=== PATIENT | female | born 1975 | race Caucasian/White ===

== ENCOUNTER 2019-10-15 11:19 | Emergency (ER) | payer OTHER ==
[~2019-10-15] VITALS: Ht 162.6 cm; Wt 68.0 kg
[2019-10-15] MEDS ORDERED: METHOTREXATE 22.5 M1 PO (11:28)
[2019-10-15] MEDS ORDERED: RAYOS5 MG PO (11:28)
[2019-10-15] MEDS ORDERED: FOLIC ACID1 MG PO (11:28)
[2019-10-15 12:05] LABS: ABSOLUTE BASOPHILS 0.1 thou/uL (0.0-0.2); ABSOLUTE EOSINOPHILS 0.1 thou/uL (0.0-0.7); ABSOLUTE LYMPHOCYTES 2.2 thou/uL (0.8-5.3); ABSOLUTE MONOCYTES 0.6 thou/uL (0.0-1.2); ABSOLUTE NEUTROPHILS 7.9 thou/uL (1.6-8.1); EOSINOPHILS 1.1 %; HEMATOCRIT 40.1 % (37.0-47.0); LYMPHOCYTES 20.6 %; MCH 34.2 pg (26.0-34.0); MCHC 34.8 g/dL (28.0-37.0); MCV 98.2 fL (80.0-100.0); MONOCYTES 5.1 %; MPV 7.7 fl. (7.2-11.1); NUCLEATED RBCS 0 /100WBC; PLATELET COUNT* 308 thou/uL (150-400); POLYS 72.2 %; RBC 4.08 mil/uL (4.20-5.00); RDW-CV 13.8 % (10.5-14.5); WBC 10.9 thou/uL (4.0-11.0)
[2019-10-15 12:16] LABS: PROTIME 10.1 Seconds (9.20-11.50)
[2019-10-15 12:18] LABS: CALCIUM 8.4 mg/dL (8.5-10.1); CREATININE 0.5 mg/dL (0.6-1.3); POTASSIUM 3.6 mmol/L (3.5-5.1)
[2019-10-15 12:37] LABS: ALBUMIN 3.4 g/dL (3.4-5.0); TOTAL BILIRUBIN 0.5 mg/dL (<0.1-1.0); TOTAL PROTEIN 6.9 g/dL (6.4-8.2)
[2019-10-15] MEDS ORDERED: PREVACID 24HR15 MG PO (14:50)
[2019-10-15] MEDS ORDERED: CARAFATE 1 GM TA1 GM PO (14:50)
[2019-10-15 15:05] VITALS: BP 144/83
--- NOTE | 2019-10-17 13:56 | EKG ---
[place] [address] ELECTROCARDIOGRAM REPORT Name: UCHE KAMARA Room: [facility]#: [id number] Admission: 10/15/19 Attend Phys: Discharge: 10/15/19 Date of : 75 Date of Service: 10/15/19 1127 Report #: [id number] THIS REPORT FOR: cc: Angelica Amor Shehryar A. 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
== END 2019-10-15 15:05 | disposition home or self-care (01) ==
LOC: M.ERS 11:19
PROVIDERS: Personal Emergency Response Attendant
DX: R07.89 Other chest pain (principal); I10 Essential (primary) hypertension; Z90.710 Acquired absence of both cervix and uterus; Z88.2 Allergy status to sulfonamides

== ENCOUNTER 2020-12-01 10:49 | Emergency (ER) | payer OTHER ==
[~2020-12-01] VITALS: Ht 162.6 cm; Wt 65.8 kg
[~2020-12-01 10:49] MED LIST: CARAFATE 1 GM TA1 GM PO; FOLIC ACID1 MG PO; METHOTREXATE 22.5 M1 PO; PREVACID 24HR15 MG PO; RAYOS5 MG PO
[2020-12-01 11:00] LABS: URINE BILIRUBIN NEGATIVE (Negative); URINE BLOOD NEGATIVE (Negative); URINE CLARITY CLEAR; URINE COLOR YELLOW; URINE GLUCOSE-RANDOM NEGATIVE (Negative); URINE KETONES NEGATIVE (Negative); URINE LEUKOCYTES-REFLEX TRACE (Negative); URINE NITRITE-REFLEX NEGATIVE (Negative); URINE PROTEIN NEGATIVE (Negative); URINE SPECIFIC GRAVITY 1.025 (1.005-1.030); URINE UROBILINOGEN 0.2 E.U./dl (0.2-1.0)
[2020-12-01] MEDS ORDERED: ORENCIA125 MG/1 M SUBQ (11:00)
[2020-12-01 11:11] LABS: SQUAMOUS >10 Many /LPF (0-3); URINE RBC None Seen /HPF (0-2); URINE WBC-REFLEX 0-5 Rare /HPF (0-5)
[2020-12-01 11:12] LABS: BACTERIA-REFLEX None Seen /HPF (None Seen); CASTS None Seen /LPF (None Seen); CRYSTALS None Seen /LPF (None Seen); MUCUS None Seen strn/LPF (None Seen)
[2020-12-01 11:15] LABS: ABSOLUTE BASOPHILS 0.1 thou/uL (0.0-0.2); ABSOLUTE EOSINOPHILS 0.4 thou/uL (0.0-0.7); ABSOLUTE LYMPHOCYTES 2.7 thou/uL (0.8-5.3); ABSOLUTE MONOCYTES 0.6 thou/uL (0.0-1.2); ABSOLUTE NEUTROPHILS 7.2 thou/uL (1.6-8.1); BASOPHILS 0.9 %; EOSINOPHILS 3.7 %; HEMATOCRIT 45.9 % (37.0-47.0); HEMOGLOBIN 15.8 gm/dL (12.0-15.0); LYMPHOCYTES 24.4 %; MCH 32.7 pg (26.0-34.0); MCHC 34.4 g/dL (28.0-37.0); MONOCYTES 5.3 %; NUCLEATED RBCS 0 /100WBC; PLATELET COUNT* 355 thou/uL (150-400); POLYS 65.7 %; RBC 4.83 mil/uL (4.20-5.00); RDW-CV 12.8 % (10.5-14.5); WBC 10.9 thou/uL (4.0-11.0)
[2020-12-01 11:19] LABS: CALCIUM 8.8 mg/dL (8.5-10.1); CREATININE 0.6 mg/dL (0.6-1.3); POTASSIUM 3.9 mmol/L (3.5-5.1)
[2020-12-01 11:23] LABS: ALBUMIN 3.6 g/dL (3.4-5.0); TOTAL BILIRUBIN 0.4 mg/dL (<0.1-1.0); TOTAL PROTEIN 8.1 g/dL (6.4-8.2)
[2020-12-01] MEDS ORDERED: BENTYL 10 MG CA10 M1 PO (12:33)
[2020-12-01] MEDS ORDERED: CITRATE OF MAG296 M1 PO (12:33)
[2020-12-01] MEDS ORDERED: ZOFRAN ODT4 MG PO (12:33)
[2020-12-01] MEDS ORDERED: SENOKOT8.6 MG PO (12:41)
[2020-12-01 12:53] VITALS: BP 149/82
--- NOTE | 2020-12-01 16:45 | EKG ---
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[facility] : 1975 Requested By: Joceline Prado Order Number: [id number] MD: Espinoza Horner Measurements Intervals [place] Rate: 89 P: 39 [place]: 149 QRS: 25 QRSD: 81 T: 33 QT: 334 QTc: 407 Interpretive Statements Sinus rhythm Compared to ECG 10/15/2019 11:27:23 Sinus tachycardia no longer present Electronically Signed On 12-01-2020 16:45:18 CDT by Espinoza Horner [email or web address] <ELECTRONICALLY SIGNED> By: Espinoza Horner MD, [facility] 12/01/20 1645 1106 1106 Espinoza Horner MD, [facility] /EPI
== END 2020-12-01 12:57 | disposition home or self-care (01) ==
LOC: M.ERS 10:49
PROVIDERS: Nurse Practitioner Family
DX: K59.00 Constipation, unspecified (principal); R11.0 Nausea; I10 Essential (primary) hypertension; M06.9 Rheumatoid arthritis, unspecified; Z85.43 Personal history of malignant neoplasm of ovary; Z90.710 Acquired absence of both cervix and uterus; Z88.2 Allergy status to sulfonamides